=== PATIENT | female | born 1990 | race Caucasian/White ===

== ENCOUNTER 2016-10-19 09:33 | Emergency (ER) | payer SELFPAY ==
[~2016-10-19] VITALS: Ht 165.1 cm; Wt 90.0 kg
[~2016-10-19 09:33] MED LIST: CEPH500C3 PO
[2016-10-19 09:34] VITALS: BP 120/74; PULSE 56; RESP 16; TEMP 98.6; O2SAT 99
[2016-10-19] MEDS ORDERED: AUGM875T PO (10:12)
[2016-10-19] MEDS ORDERED: IBUP800T23 PO (10:13)
--- NOTE | 2016-10-19 10:13 | PD ---
HPI Chief Complaint: Bite or Sting Time Seen by Provider: 10:10 Travel History International Travel<30 days: No Contact w/Intl Traveler<30days: No Traveled to known affect area: No History of Present Illness HPI 26-year-old female presents to emergency department with erythema and edema to the dorsal aspect of her right hand since Tuesday night after being either scratched or bit by a cat on Tuesday morning. Her cat and a feral cat were in a fight and she them. She does not know if she was bit or scratched and does not know which cat may have bit or scratched her. Her cat is up-to- date on vaccinations; she does not know the vaccination status of the other cat. 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 Reports it feels worse, but looks somewhat better. Denies fever, chills, nausea, vomiting. Denies paresthesias, loss of sensation, decreased range motion, decreased strength to the affected extremity. He is up-to-date on tetanus vaccination. No known allergies. No other modifying factors or associated signs and symptoms. PFSH Past Medical History Integumentary: Yes (ECZEMA) ?: Not LMP: 09/21 : 2 : 2 Social History Alcohol Use: No Tobacco Use: No Substance Use: Yes (MARIJUANA DAILY) Allergies-Medications (Allergen,Severity, Reaction): Coded Allergies: No Known Allergies (Unverified , 03/11/14) Reported Meds & Prescriptions Reported Meds & Active Scripts Active Ibuprofen 800 Mg Tab 800 Mg PO Q6HR PRN Augmentin (Amoxicillin-Clavulanate) 875-125 mg Tab 875 Mg PO BID 14 Days not for use in CrCl <30 ml/min. Keflex (Cephalexin Monohydrate) 500 Mg Cap 500 Mg PO TID Review of Systems Except as stated in HPI: all other systems reviewed are Neg Physical Exam Narrative GENERAL: Well-nourished, well-developed female patient, in no acute distress; afebrile, nontoxic-appearing SKIN: Warm and dry. Dorsal aspect of the right hand just below the second and third digits with erythema and edema and a small scabbed puncture wound noted without drainage. Right upper extremity supple non-tense with 2+ radial pulse and sensory intact. HEAD: Atraumatic. Normocephalic. EYES: Pupils equal and round. No scleral icterus. No injection or drainage. ENT: Mucosa pink and moist. Airway patent. NECK: Trachea midline. CARDIOVASCULAR: Regular rate. RESPIRATORY: No accessory muscle use. GASTROINTESTINAL: Rounded. MUSCULOSKELETAL: No obvious deformities. No clubbing. No cyanosis. No edema. NEUROLOGICAL: Awake and alert. Oriented 3. No obvious cranial nerve deficits. Motor grossly within normal limits. Normal speech. PSYCHIATRIC: Appropriate mood and affect; insight and judgment normal. Data Data Last Documented VS Vital Signs Date Time Temp Pulse Resp B/P Pulse Ox O2 Delivery O2 Flow Rate FiO2 10/19/16 10:12 79 18 10/19/16 09:34 98.6 120/74 99 Room Air MDM Medical Decision Making Medical Screen Exam Complete: Yes Emergency Medical Condition: Yes Medical Record Reviewed: Yes Differential Diagnosis Bite, cat scratch, cellulitis Narrative Course 26-year-old female with cellulitis to the dorsal aspect of the right hand caused by either a cat bite or cat scratch. Patient previously taking tetracycline that was prescribed by a dentist that she works for. Patient is up -to-date on tetanus vaccination. She declines rabies vaccinations to be initiated at this time. Patient is afebrile. She denies fever, chills, nausea , vomiting. Instructed patient to stop tetracycline. Augmentin and ibuprofen prescribed for home. Patient is medically cleared and stable for discharge. Discussed reasons to return to the emergency department. Instructed patient to follow up with primary care provider. Patient agrees with treatment plan. The patients vital signs are stable and the patient is stable for outpatient follow- up and treatment. Patient discharged home, stable and in no acute distress. Diagnosis Primary Impression: Cat bite of right hand with infection Qualified Code: S61.451A - Cat bite of right hand with infection, initial encounter Referrals: Primary Care Physician Patient Instructions: Animal Bite (ED), Cellulitis (ED), General Instructions Departure Forms: Tests/Procedures, Work Release Enter return to work date: Oct 21, 2016 Additional Instructions: Tylenol or ibuprofen as instructed and as needed for pain and inflammation Antibiotics as prescribed and complete full course Ice to affected area to decrease pain and inflammation Follow-up with primary care provider Return to the emergency department immediately with worsening of symptoms Med/Other Pt SpecificInfo: Prescription(s) given Scripts Ibuprofen 800 Mg [id number] Mg PO Q6HR PRN (PAIN) #30 TAB Ref 0 Prov:Joelle Guzman 10/19/16 Amoxicillin-Clavulanate (Augmentin)875-125 mg [id number] Mg PO BID 14 Days Ref 0 not for use in CrCl <30 ml/min. Prov:Joelle uGzman 10/19/16 Disposition: 01 DISCHARGE HOME Condition: Stable Joelle Guzman Oct 19, 2016 10:13
[2016-10-19 10:46] VITALS: BP 124/72; TEMP 98.2
== END 2016-10-19 10:54 | disposition home or self-care (01) ==
LOC: NEPB 09:33
DX: S61.451A Open bite of right hand, initial encounter (principal); L03.113 Cellulitis of right upper limb; W55.01XA Bitten by cat, initial encounter
CPT/HCPCS: 99283